=== PATIENT | male | born 1990 | race Caucasian/White ===

== ENCOUNTER 2025-03-24 11:35 | Emergency (ER) | payer OTHER, SELFPAY ==
[2025-03-24 11:36] VITALS: BP 125/70; PULSE 93; RESP 14; TEMP 36.8; O2SAT 98; BMI 21.9
--- NOTE | 2025-03-24 11:50 | EX.ED.GENINJ ---
HPI <GLYNN Dooley - Last Filed: 03/24/25 12:35> History of Present Illness Chief Complaint: Laceration Narrative Narrative: 34-year-old male states a metal pry bar kicked back and struck his right forehead causing a small laceration. No LOC. He has a mild headache. No visual changes, nausea, vomiting, altered mental status. He is not on blood thinners. Last tetanus unknown. PFSH <GLYNN Dooley - Last Filed: 03/24/25 12:35> [facility] Medical History (Updated 03/24/25 @ 11:56 by GLYNN Dooley) HPV in male Home Medications ?Medication ?Instructions ?Recorded ?Last Taken ?Type atomoxetine 60 mg capsule 60 mg PO DAILY 03/24/25 Unknown History venlafaxine 100 mg tablet 100 mg PO DAILY 03/24/25 Unknown History Allergy/AdvReac Type Severity Reaction Status Date / Time No Known Allergies Allergy Verified 03/24/25 11:38 Surgical History (Updated 03/24/25 @ 11:48 by Megan Mcclendon) History of hip surgery Social History Smoking Status: Never smoker ROS <GLYNN Dooley - Last Filed: 03/24/25 12:35> ROS ED ROS Narrative Eyes: Negative for visual change. GI: Negative for nausea, vomiting. Neuro: Positive for headache, negative motor/sensory dysfunction. Skin: Positive for laceration. EXAM <GLYNN Dooley - Last Filed: 03/24/25 12:35> Physical Exam Narrative Exam Narrative: CONST: Patient sitting in no acute distress. EYES: Normal inspection. PERRL, EOMI. HEAD: 2.5 cm linear laceration above right lateral eyebrow. No bleeding or gaping, no hematoma, no facial bone deformity or crepitus. No raccoon eyes or Gamble sign, no nasal septal hematoma, no hemotympanum, no CSF otorrhea or rhinorrhea. NECK: Normal inspection. RESP: No respiratory distress, CTAB. CVS: Regular rate and rhythm, no murmur, no gallop. SKIN: Color normal, no rash, warm, dry, intact. EXTREMITIES: Normal appearance, no pedal edema. NEURO: Alert and answering questions appropriately. PSYCH: Normal affect. Const Vital Signs: 03/24/25 11:36 Temperature 98.3 F Temperature Source Oral Pulse Rate 93 Respiratory Rate 14 Blood Pressure 125/70 H Blood Pressure Mean 88 Pulse Ox 98 Oxygen Delivery Method Room Air <Dr. Leandro Tran MD - Last Filed: 03/24/25 12:00> Physical Exam Const Vital Signs: 03/24/25 11:36 Temperature 98.3 F Temperature Source Oral Pulse Rate 93 Respiratory Rate 14 Blood Pressure 125/70 H Blood Pressure Mean 88 Pulse Ox 98 Oxygen Delivery Method Room Air [facility] <GLYNN Dooley - Last Filed: 03/24/25 12:35> [facility] Narrative Medical decision making narrative: Patient show male with a 2.5 cm laceration above his right eyebrow from a minor head injury. No LOC. No blood thinners. He is awake and alert, GCS 15, and has no signs of basilar skull fracture. Normal neurological exam. According to [place] CT head rule he does not require imaging. Wound was cleansed, closed with skin glue, and his tetanus was updated. He was given head injury return precautions and discharged in stable condition. I have personally performed a face to face assessment of the patient and have reviewed the HILARIA Note. I performed a substantive portion of the visit including all aspects of the following. My negrete findings include: History is 34-year-old male caught a pry bar just above his right eyebrow. Occurred within the last couple hours. No LOC. He is not on any blood thinners. Denies other complaints. Tetanus needs updated. Exam is [well-appearing 34-year-old male. Vital signs stable afebrile. H EENT exam pupils are reactive light. Scalp nontender. He has about a 1 inch horizontal laceration above his right eyebrow knee repaired. It has been glued. Good approximation. No hematoma. No foreign body or infection. Neck nontender. Normal range of motion. Back nontender. Lungs clear. Heart regular rhythm. No murmur. Rate 90. Chest wall ribs nontender. Abdomen soft nontender. Moving all 4 extremities. Normal strength. Neurologic exam normal. GCS 15.] Medical Decision Making [tetanus update and Dermabond right forehead laceration.] Other additions or changes: [None] <Dr. Leandro Tran MD - Last Filed: 03/24/25 12:00> [facility] Narrative Medical decision making narrative: I have personally performed a face to face assessment of the patient and have reviewed the HILARIA Note. I performed a substantive portion of the visit including all aspects of the following. My negrete findings include: History is 34-year-old male caught a pry bar just above his right eyebrow. Occurred within the last couple hours. No LOC. He is not on any blood thinners. Denies other complaints. Tetanus needs updated. Exam is [well-appearing 34-year-old male. Vital signs stable afebrile. H EENT exam pupils are reactive light. Scalp nontender. He has about a 1 inch horizontal laceration above his right eyebrow knee repaired. It has been glued. Good approximation. No hematoma. No foreign body or infection. Neck nontender. Normal range of motion. Back nontender. Lungs clear. Heart regular rhythm. No murmur. Rate 90. Chest wall ribs nontender. Abdomen soft nontender. Moving all 4 extremities. Normal strength. Neurologic exam normal. GCS 15.] Medical Decison Making [tetanus update and Dermabond right forehead laceration.] Other additions or changes: [None] Discharge Plan Triage Chief Complaint: Laceration ED Midlevel Provider: Taylor Henning ED Provider: Leandro Tran Dx/Rx/DC Orders Clinical Impression: Closed head injury, Open wound of right upper arm, Foreign body (FB) in soft tissue Instructions: ED Head Injury (Adult), ED Laceration, Face: Skin Glue Prescriptions: No Action venlafaxine 100 mg tablet 100 mg PO DAILY atomoxetine 60 mg capsule 60 mg PO DAILY Primary Care Provider: Care Physician,No Primary Activity Restrictions/Additional Instructions: The skin glue should fall off on its own over the next week. You can shower and then gently pat area dry. Do not put anything over the glue. Print Language: Wolof Disposition Disposition: Home, Self Care Discharge Date/Time: 03/24/25 12:19
[2025-03-24] MEDS: Diphth,Pertuss(Acell),Tet Vac 0.5 ML Vial IM (11:58)
== END 2025-03-24 12:19 | disposition home or self-care (01) ==
LOC: ED 12:00
PROVIDERS: Emergency Provider Emergency Medicine; Visit Provider Emergency Medicine
DX: S09.90XA Unspecified injury of head, initial encounter (principal); S41.101A Unspecified open wound of right upper arm, initial encounter; Z23 Encounter for immunization; Z79.899 Other long term (current) drug therapy; X58.XXXA Exposure to other specified factors, initial encounter
CPT/HCPCS: 90471; 90715; 99282

== ENCOUNTER → 2025-06-26 | Outpatient (CLI) | payer OTHER, SELFPAY ==
--- OUTSIDE RECORDS SUMMARY | 2025-06-26 07:13 | XMS RPT_ITS | CCD ---
Author Organization [employer] [facility] Care Team Providers Care Human Resources Intern Name Role Phone Leandro Tran Attending Unavailable Care Physician, No Primary Primary Care Unava ilable Ariel Wilks Referring Unavailable Ariel Wilks Attending Unavailable Ariel Wilks Primary Care Unavailable Problems Problem Classification Problem Date Documented Da te Episodic/Chronic Other injuries and conditions due to external causes (1 source) Unspecified injury of head, initial encounter; Translations: [Unspecified injury of head, initial encounter] Onset: 03-28-2025 Episodic Results Test Name Value Interpretation Reference Range Facil ity Emergency Department Summary on 03-24-2025 Emergency Department Summary [facility] Medical Records Department [address] [place] [address] Emergency Department Summary 03/24/25 MR#: [id number] Acct: [id number] Name: JEN GONZALEZ Rep #: [id number] : 1990 34 From: Taylor MAKI PCP: Care Physician,No Primary Status:DEP ER Location: ED HPI History of Present Illness Chief Complaint: Laceration Narrative Narrative: 34-year-old male states a metal pry bar kicked back and struck his right forehead causing a small laceration. No LOC. He has a mild headache. No visual changes, nausea, vomiting, altered mental status. He is not on blood thinners. Last tetanus unknown. [facility] Medical History (Updated 03/24/25 @ 11:56 by GLYNN Dooley) HPV in male Home Medications ???Medication ???Instructions ???Recorded ???Last Taken ???Type atomoxetine 60 mg capsule 60 mg PO DAILY 03/24/25 Unknown Hi story venlafaxine 100 mg tablet 100 mg PO DAILY 03/24/25 Unknown H istory Allergy/AdvReac Type Severity Reaction Status Date / Time No Known Allergies Allergy Verified 03/24/25 11:38 Surgical History (Updated 03/24/25 @ 11:48 by Megan Mcclendon) History of hip surgery Social History Smoking Status: Never smoker ROS ROS ED ROS Narrative Eyes: Negative for visual change. GI: Negative for nausea, vomiting. Neuro: Positive for headache, negative motor/sensory dysfunction. Skin: Positive for laceration. EXAM Physical Exam Narrative Exam Narrative: CONST: Patient sitting in no acute distress. EYES: Normal inspection. PERRL, EOMI. HEAD: 2.5 cm linear laceration above right lateral eyebrow. No bleeding or gaping, no hematoma, no facial bone deformity or crepitus. No raccoon eyes or Gamble sign, no nasal septal hematoma, no hemotympanum, no CSF otorrhea or rhinorrhea. NECK: Normal inspection. RESP: No respiratory distress, CTAB. CVS: Regular rate and rhythm, no murmur, no gallop. SKIN: Color normal, no rash, warm, dry, intact. EXTREMITIES: Normal appearance, no pedal edema. NEURO: Alert and answering questions appropriately. PSYCH: Normal affect. Const Vital Signs: 03/24/25 11:36 Temperature 98.3 F Temperature Source Oral Pulse Rate 93 Respiratory Rate 14 Blood Pressure 125/70 H Blood Pressure Mean 88 Pulse Ox 98 Oxygen Delivery Method Room Air Physical Exam Const Vital Signs: 03/24/25 11:36 Temperature 98.3 F Temperature Source Oral Pulse Rate 93 Respiratory Rate 14 Blood Pressure 125/70 H Blood Pressure Mean 88 Pulse Ox 98 Oxygen Delivery Method Room Air MDM MDM MDM Narrative Medical decision making narrative: Patient show male with a 2.5 cm laceration above his right eyebrow from a minor head injury. No LOC. No blood thinners. He is awake and alert, GCS 15, and has no signs of basilar skull fracture. Normal neurological exam. According to [place] CT head rule he does not require imaging. Wound was cleansed, closed with skin glue, and his tetanus was updated. He was given head injury return precautions and discharged in stable condition. I have personally performed a face to face assessment of the patient and have reviewed the HILARIA Note. I performed a substantive portion of the visit including all aspects of the following. My negrete findings include: History is 34-year-old male caught a pry bar just above his right eyebrow. Occurred within the last couple hours. No LOC. He is not on any blood thinners. Denies other complaints. Tetanus needs updated. Exam is [well-appearing 34-year-old male. Vital signs stable afebrile. H EENT exam pupils are reactive light. Scalp nontender. He has about a 1 inch horizontal laceration above his right eyebrow knee repaired. It has been glued. Good approximation. No hematoma. No foreign body or infection. Neck nontender. Normal range of motion. Back nontender. Lungs clear. Heart regular rhythm. No murmur. Rate 90. Chest wall ribs nontender. Abdomen soft nontender. Moving all 4 extremities. Normal strength. Neurologic exam normal. GCS 15.] Medical Decision Making [tetanus update and Dermabond right forehead laceration.] Other additions or changes: [None] MDM MDM Narrative Medical decision making narrative: I have personally performed a face to face assessment of the patient and have reviewed the HILARIA Note. I performed a substantive portion of the visit including all aspects of the following. My negrete findings include: History is 34-year-old male caught a pry bar just above his right eyebrow. Occurred within the last couple hours. No LOC. He is not on any blood thinners. Denies other complaints. Tetanus needs updated. Exam is [well-appearing 34-year-old male. Vital signs stable afebrile. H EENT exam pupils are reactive light. Scalp nontender. He has (more content not included)... Normal [facility] Encounters Encounter Date Encounter Type Care Provider Facility Start: 06-26-2025 ambulatory Ariel Wilks Facility:[facility] Start: 03-24-2025 End: 03-24-2025 Emergency department patient visit Leandro Tran Facility:[facility] Payers Date Payer Category Payer Self-pay 2025 Unknown [id number] Unknown [id number] Unknown [id number] Summary Purpose Family History No Family History Records Found Advance Directives No Advanced Directives Records Found Additional Source Comments (unrecognized sect ion and content) No Status Records Found INFORMATION SOURCE (unrecogn ized section and content) DATE CREATED AUTHOR 06/26/2025 [facility] FOR RECORDS PERTAINING TO PATIENTS WHO ARE OR HAVE BEEN ENROLLED IN A CHEMICAL DEPENDENCY/SUBSTANCEABUSE PROGRAM, SOME INFORMATION MAY BE OMITTED. This clinical summary was aggregated from multiple sources. Caution should be exercised in using it in the provision of clinical care. This summary normalizes information from multiple sources, and as a consequence, information in this document may materially change the coding, format and clinical context of patient data. In addition, data may be omitted in some cases. CLINICAL DECISIONS SHOULD BE BASED ON THE PRIMARY CLINICAL RECORDS. [facility] [employer] [facility]. provides no warranty or guarantee of the accuracy or completeness of information in this document.
[2025-06-26 11:36] LABS: Anion Gap 12 (5-15); BUN 9 mg/dL (4-19); BUN/Creat Ratio 9.2 RATIO (10-20); Calcium,Total 9.5 mg/dL (7.6-11.0); Carbon Dioxide 26.4 mmol/L (21.0-32.0); Chloride 101 mmol/L (98-108); Cholesterol 173 mg/dL (<=200); Glucose 89 mg/dL (70-99); Low Density Lipoprotein Calc. 98 mg/dL; Potassium 3.9 mmol/L (3.3-5.1); Triglycerides 78 mg/dL; Very Low Density Lipoprotein 16 mg/dL (5-40); cholesterol:hdl ratio screen 2.91
== END | disposition home or self-care (01) ==
LOC: MTLAB 06:58
PROVIDERS: PCP Family Medicine; Referring Provider Family Medicine; Visit Provider Family Medicine
DX: Z00.00 Encounter for general adult medical examination without abnormal findings (principal)
CPT/HCPCS: 36415; 80048; 80061; 84443

== ENCOUNTER 2025-08-13 11:22 | Emergency (ER) | payer OTHER, SELFPAY ==
[2025-08-13 11:23] VITALS: PULSE 84; RESP 16; TEMP 36.6; O2SAT 99; BMI 21.4
--- OUTSIDE RECORDS SUMMARY | 2025-08-13 11:59 | XMS RPT_ITS | CCD ---
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 Reeves Attending Provider [phone] Dr. Leandro Tran MD Emergency Provider [phone] Care Physician, No Primary Primary Care Provider Unavailable Efe AGUILAR, Dr. George Primary Care Provider [phone] Efe AGUILAR, Dr. George Attending Provider Dr. Ariel Wilks MD Referring Provider Ariel Wilks Primary Care Unavailable Ariel Wilks Attending Unavailable Ariel Wilks Referring Unavailable Leandro Tran Attending Unavailable Care Physician, No Primary Primary Care Unava ilable Medications Current Medications Medication Drug Class(es) Dates Sig (Normalized) Sig (Original) atomoxetine 60 mg oral capsule (1 source) Norepinephrine Reuptake Inhibitor Start: 03-24-2025 take 1 capsule by mouth once daily Atomoxetine 60 mg capsule Active 60 mg PO DAILY March 24, 2025 12:00am venlafaxine 100 mg oral tablet (1 source) Serotonin and Norepinephrine Reuptake Inhibitor Start: 03-24-2025 take 1 tablet by mouth once daily Venlafaxine 100 mg tablet Active 100 mg PO DAILY March 24, 2025 12:00am Problems Active Problems Problem Classification Problem Date Documented Da te Episodic/Chronic Open wounds of extremities (1 source) Open wound of right upper arm; Translations: [Unspecified open wound of right upper arm, initial encounter] 04-01-2025 Episodic Other connective tissue disease (1 source) Foreign body; Translations: [Residual foreign body in soft tissue] 04-01-2025 Episodic Other injuries and conditions due to external causes (1 source) Closed injury of head; Translations: [Unspecified injury of head, initial encounter] 04-01-2025 Episodic Past or Other Problems Problem Classification Problem Date Documented Da te Episodic/Chronic Other injuries and conditions due to external causes (1 source) Unspecified injury of head, initial encounter; Translations: [Unspecified injury of head, initial encounter] Onset: 03-28-2025 Episodic Results Test Name Value Interpretation Reference Range Facility Anion gap in Serum or Plasma Ordered By: Ariel Wilks on 06-26-2025 Anion gap [Moles/Vol] 12 mmol/L 5-15 [facility] BUN/creatinine ratioOrdered By: Ariel Wilks on 06-26-2025 Urea nitrogen/Creatinine [Mass ratio] 9.2 mg/mg Low 10-20 [facility] Basic Metabolic Profile (BMP )on 06-26-2025 BUN/CRE 9.2 RATIO Low 10-20 [facility] Comment on above: Performed By: #### L 501.9520, L500.4100, L500.2500 #### [facility] [address] [place], [address] Calcium [Mass/Vol] 9.5 mg/dL Normal 7.6-11.0 [facility] Comment on above: Performed By: #### L 501.9520, L500.4100, L500.2500 #### [facility] [address] [place], [address] Chloride [Moles/Vol] 101 mmol/L Normal 98-108 [facility] Comment on above: Performed By: #### L 501.9520, L500.4100, L500.2500 #### [facility] [address] [place], [address] CO2 [Moles/Vol] 26.4 mmol/L Normal 21.0-32.0 [facility] Comment on above: Performed By: #### L [id number], L500.4100, L500.2500 #### [facility] [address] [place], [address] Creatinine [Mass/Vol] 1.00 mg/dL Normal 0.70-1.20 [facility] Comment on above: Performed By: #### L [id number], L500.4100, L500.2500 #### [facility] [address] [place], [address] GAP 12 Normal 5-15 [facility] Comment on above: Performed By: #### L [id number], L500.4100, L500.2500 #### [facility] [address] [place], [address] GFR/1.73 sq M.predicted among non-blacks MDRD (S/P/Bld) [Vol rate/Area] 101 mL/min/{1.73_m2} Normal >60 [facility] Comment on above: Result Comment: mL/m in/1.73m2 CKD-EPI Creatinine Equation (2020) Performed By: #### L 501.9520, L500.4100, L500.2500 #### [facility] [address] [place], [address] Glucose [Mass/Vol] 89 mg/dL Normal 70-99 [facility] Comment on above: Performed By: #### L [id number], L500.4100, L500.2500 #### [facility] [address] [place], [address] Potassium [Moles/Vol] 3.9 mmol/L Normal 3.3-5.1 [facility] Comment on above: Performed By: #### L 501.9520, L500.4100, L500.2500 #### [facility] [address] [place], [address] Sodium [Moles/Vol] 139 mmol/L Normal 133-145 [facility] Comment on above: Performed By: #### L 501.9520, L500.4100, L500.2500 #### [facility] [address] [place], [address] Urea nitrogen [Mass/Vol] 9 mg/dL Normal 4-19 [facility] Comment on above: Performed By: #### L 501.9520, L500.4100, L500.2500 #### [facility] [address] [place], [place], [id number] Calculated very low density lipoprotein (VLDL) cholesterol measurementOrdered By: Ariel Wilks on 06-26-2025 Calculated very low density lipoprotein (VLDL) cholesterol measurement 16 mg/dL 5-40 [facility] Carbon dioxide, total [Moles /volume] in Central venous bloodOrdered By: Ariel Wilks on 06-26-2025 CO2 [Moles/Vol] 26.4 mmol/L 21.0-32.0 [facility] Chloride assayOrdered By: Adelso Wilks on 06-26-2025 Chloride [Moles/Vol] 101 mmol/L 98-108 [facility] Glomerular filtration rate ( GFR) estimation/1.73 sq m using serum, plasma, or whole bOrdered By: Ariel Wilks on 06-26-2025 GFR/1.73 sq M.predicted among non-blacks MDRD (S/P/Bld) [Vol rate/Area] 101 mL/min/{1.73_m2} >60 [facility] Comment on above: mL/min/1.73m2 CKD-EP I Creatinine Equation (2020) LDL calc ser/plasOrdered By: Ariel Wilks on 06-26-2025 Cholesterol in LDL [Mass/Vol] 98 mg/dL [facility] Comment on above: Woishblexr=427-169 m g/dL & Higher Nptg=259 mg/dL or greaterFriedwald Equation for LDL-C Lipid Profileon 06-26-2025 CHOL:HDL 2.91 Normal [facility] Comment on above: Performed By: #### L 501.9520, L500.4100, L500.2500 #### [facility] [address] [place], [address] Cholesterol [Mass/Vol] 173 mg/dL Normal <=200 [facility] Comment on above: Result Comment: Chol esterol level, Desirable <200 mg/dL Borderline high cholesterol 200-239 mg/dL High cholesterol >=240 mg/dL Recommendations of the NCEP Adult Treatment Panel for the following risk-cutoff thresholds for the [place] population. Performed By: #### L 501.9520, L500.4100, L500.2500 #### [facility] [address] [place], [address] Cholesterol in HDL [Mass/Vol] 59 mg/dL Normal [facility] Comment on above: Result Comment: Amber onal Cholesterol Education Program (NCEP) guidelines: <40 mg/dL: Low HDL-cholesterol (major risk factor for CHD) >= 60 mg/dL: High HDL-cholesterol (negative risk factor for CHD) HDL-cholesterol is affected by a number of factors, e.g. smoking, exercise, hormones, sex and age. Performed By: #### L [id number], L500.4100, L500.2500 #### [facility] [address] [place], [address] Cholesterol in LDL [Mass/Vol] 98 mg/dL Normal [facility] Comment on above: Result Comment: Bord nkvnmv=217-865 mg/dL Higher Ctqy=945 mg/dL or greater Friedwald Equation for LDL-C Performed By: #### L [id number], L500.4100, L500.2500 #### [facility] [address] [place], [address] Cholesterol in VLDL [Mass/Vol] 16 mg/dL Normal 5-40 [facility] Comment on above: Performed By: #### L [id number], L500.4100, L500.2500 #### [facility] [address] [place], [address] Triglyceride [Mass/Vol] 78 mg/dL Normal [facility] Comment on above: Result Comment: The drugs N-Acetylcysteine and Metamizole may falsely depress this assay. Normal range: <150 mg/dL Borderline High: 150-199 mg/dL High: 200-499 mg/dL Very High: >500 mg/dL Performed By: #### L [id number], L500.4100, L500.2500 #### [facility] [address] [place], [address] Potassium measurement (mass/ volume)Ordered By: Ariel Wilks on 06-26-2025 Potassium (Unsp spec) [Mass/Vol] 3.9 mmol/L 3.3-5.1 [facility] Screening total cholesterol/ high density lipoprotein (HDL) cholesterol ratioOrdered By: Ariel Wilks on 06-26-2025 Cholesterol.total/Fay sterol in HDL [Mass ratio] 2.91 {ratio} [facility] Serum creatinine measurement (mass/volume)Ordered By: Ariel Wilks on 06-26-2025 Creatinine [Mass/Vol] 1.00 mg/dL 0.70-1.20 [facility] Serum glucose measurement (m ass/volume)Ordered By: Ariel iWlks on 06-26-2025 Glucose [Mass/Vol] 89 mg/dL 70-99 [facility] Serum or plasma calcium marla urement (mass/volume)Ordered By: Ariel Wilks on 06-26-2025 Calcium [Mass/Vol] 9.5 mg/dL 7.6-11.0 [facility] Serum or plasma cholesterol in HDL measurement (mass/volume)Ordered By: Ariel Wilks on 06-26-2025 Cholesterol in HDL [Mass/Vol] 59 mg/dL >40 [facility] Comment on above: National Cholesterol Education Program (NCEP) guidelines:<40 mg/dL: Low HDL-cholesterol (major risk factor for CHD)>= 60 mg/dL: High HDL-cholesterol (negative risk factor for CHD)HDL-cholesterol is affected by a number of factors, e.g. smoking, exercise, hormones, sex and age. Serum or plasma cholesterol measurement (mass/volume)Ordered By: Ariel Wilks on 06-26-2025 Cholesterol [Mass/Vol] 173 mg/dL <201 [facility] Comment on above: Cholesterol level, D esirable <200 mg/dLBorderline high cholesterol 200-239 mg/dLHigh cholesterol >=240 mg/dLRecommendations of the NCEP Adult Treatment Panel for the following risk-cutoff thresholds for the [place] population. Serum or plasma urea nitroge n measurement (mass/volume)Ordered By: Ariel Wilks on 06-26-2025 Urea nitrogen [Mass/Vol] 9 mg/dL 4-19 [facility] Sodium levelOrdered By: Ariel Wilks on 06-26-2025 Sodium [Moles/Vol] 139 mmol/L 133-145 [facility] TSH DL <= 0.005 mIU/L QnOrde red By: Ariel Wilks on 06-26-2025 TSH Qn 1.450 uIU/mL 0.300-4.200 [facility] Thyroid Stim Hormone (TSH)on 06-26-2025 TSH 1.450 uIU/mL Normal 0.300-4.200 [facility] Comment on above: Performed By: #### L [id number], L500.4100, L500.2500 #### [facility] [address] [place], [address] Triglycerides measurementOrd ered By: Ariel Wilks on 06-26-2025 Triglyceride [Mass/Vol] 78 mg/dL <199 [facility] Comment on above: The drugs N-Acetylcy steine and Metamizole may falsely depress this assay. Normal range: <150 mg/dLBorderline High: 150-199 mg/dLHigh: 200-499 mg/dLVery High: >500 mg/dL Emergency Department Summary on 03-24-2025 Emergency Department Summary [facility] Medical Records Department [address] [place] [address] Emergency Department Summary 03/24/25 MR#: [id number] Acct: [id number] Name: JEN GONZALEZ Rep #: [id number] : 1990 34 From: [facility] MAKI PCP: [...] not on blood thinners. Last tetanus unknown. [facility] Medical History (Updated 03/24/25 @ 11:56 by ADELSO Dooley) HPV in male Home Medications ???Medication [...] skull fracture. Normal neurological exam. According to [place] CT head rule he does not require [...] forehead laceration.] Other additions or changes: [None] [employer] Narrative Medical decision making narrative: I have [...] He has (more content not included)... Normal [facility] Vital Signs Date Time Vital Sign Value Performing Clinician Faci lity 03-24-2025 11:36-0400 Body height 167.[address] Leandro Tran MD Work Phone: [facility] 03-24-2025 11:36-0400 Body mass index (BMI) [Ratio] 21.9 kg/m2 Dr. Leandro Tran MD Work Phone: [facility] 03-24-2025 11:36-0400 Body temperature 98.3 [degF] Dr. Leandro Tran MD Work Phone: [facility] 03-24-2025 11:36-0400 Body weight 61.[address] Leandro Tran MD Work Phone: [facility] 03-24-2025 11:36-0400 Diastolic blood pressure 70 mm[Hg] Dr. Leandro Tran MD Work Phone: [facility] 03-24-2025 11:36-0400 Heart rate 93 /min Dr. Leandro Tran MD Work Phone: [facility] 03-24-2025 11:36-0400 Respiratory rate 14 /min Dr. Leandro Tran MD Work Phone: [phone] [place] [address] 03-24-2025 11:36-0400 SaO2% (BldA) [Mass fraction] 98 % Dr. Leandro Tran MD Work Phone: [facility] 03-24-2025 11:36-0400 Systolic blood pressure 125 mm[Hg] Dr. Leandro Tran MD Work Phone: [facility] Encounters Encounter Date Encounter Type Care Provider Facility Start: 07-03-2025 Encounter for genera l adult medical examination without abnormal findings [facility] Start: 06-26-2025 End: 06-26-[address] Leandro Tran MD Work Phone: [facility] Start: 06-26-2025 End: 06-26-[address] Ariel Wilks MD [facility] Work Phone: Start: 06-26-2025 End: 06-26-2025 ambulatory Ariel Wilks Facility:[facility] Start: 03-24-2025 End: 03-24-2025 Emergency department patient visit Dr. Leandro Tran MD -Emergency Department Work Phone: Plan of Treatment Date Care Activity Detail Author Start: 03-24-2025 [facility] Patient Education ED Head Injury (Adult) ED Laceration, Face: Skin Glue [facility] Work Phone: Immunizations Immunization Date Immunization Notes Care Provider Fa cility 03-24-2025 tetanus toxoid, redu tera diphtheria toxoid, and acellular pertussis vaccine, adsorbed Dr. Leandro Tran MD Work Phone: [facility] Payers Date Payer Category Payer Self-pay 2025 Unknown [id number] Unknown [id number] Unknown [id number] Social History Date Type Detail Facility Start: 03-24-2025 Tobacco smoking stat [facility] Never smoked tobacco (finding) [facility] Start: 1990 Sex Assigned At Male [facility] Evaluation note Note Date & Type Note Facility Evaluation note No assessment information availa ble [facility] Work Phone: Reason for referral (narrative) Note Date & Type Note Facility Reason for referral (narrative) No reason for referral information available [facility] Work Phone: Chief Complaint and Reason for Visit Chief Complaint Admit Date laceration March 24, 2025 11:35a m Advance Directives No Advanced Directives Records Found Advance Directive Response Recorded Date/ Time Do you have a Healthcare Power of Mortgage Closer? No March 24, 2025 11:48am Summary Purpose Family History No Family History Records Found Additional Source Comments Care Teams (unrecognized sec tion and content) Team Status: Active Member Role/Relationship Status Dates Dr. Ariel Wilks MD Primary Care Provider Active Team Status: Inactive Member Role/Relationship Status Dates Dr. Leandro Tran MD Attending Provider Active S tart: March 24, 2025 End: March 24, 2025 Dr. Leandro Tran MD Emergency Provider Active S tart: March 24, 2025 End: March 24, 2025 No Primary Care Physician Primary Care Provider Active Start: March 24, 2025 End: March 24, 2025 Team Status: Inactive Member Role/Relationship Status Dates Dr. Ariel Wilks MD Primary Care Provider Active Start: June 26, 2025 End: June 26, 2025 Dr. Ariel Wilks MD Attending Provider Active Start: June 26, 2025 End: June 26, 2025 Dr. Ariel Wilks MD Referring Provider Active Start: June 26, 2025 End: June 26, 2025 Goals (unrecognized section and content) Goals may be documented in a n alternate section (unrecognized sect ion and content) No Status Records Found INFORMATION SOURCE (unrecogn ized section and content) DATE CREATED AUTHOR 07/04/2025 [facility] FOR RECORDS PERTAINING TO PATIENTS WHO ARE [...] BE BASED ON THE PRIMARY CLINICAL RECORDS. [employer] provides no warranty or guarantee of the accuracy or completeness of information in this document.
[2025-08-13] MEDS: 0.9% Normal Saline (1000mL) 1,000 ML 1000 ML IV (12:03)
--- NOTE | 2025-08-13 12:06 | ED.RN ---
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 Cap came off and blood got on gown and bed. This nurse offered to change sheets and gown. Pt refused and stated its fine. I told pt if he changes his mind to let us know and we would change it.
[2025-08-13 12:16] LABS: Hematocrit 38.5 % (40-54); Hemoglobin 13.8 g/dL (13.0-16.5); Immature Granulocytes Count 0.040 X10^3/uL (0.0-0.0); Mean Corp Hgb Conc 35.8 g/dL (32-36); Mean Corpuscular Volume 90.0 fL (80-94); Mean Platelet Vol. 10.6 fl (6.2-12.0); NRBC Flagged by Analyzer 0 % (0-5); Platelet Count 181 K/mm3 (150-450); RBC Distribution Width CV 11.7 % (11.6-14.6); RBC Distribution Width SD 37.7 fl (35.1-43.9); Red Blood Count 4.28 M/mm3 (4.6-6.2); White Blood Count 10.7 K/mm3 (4.4-11.0)
[2025-08-13 12:37] VITALS: BP 107/60; PULSE 68; O2SAT 98
[2025-08-13 12:38] LABS: Anion Gap 14 (5-15); BUN 15 mg/dL (4-19); BUN/Creat Ratio 15.5 RATIO (10-20); CPK Total, Creatine Kinase 222 U/L (24-195); Calcium,Total 8.5 mg/dL (7.6-11.0); Carbon Dioxide 21.3 mmol/L (21.0-32.0); Chloride 102 mmol/L (98-108); Estimated Creatinine Clearance 91.77 ml/min (50-250); Glucose 80 mg/dL (70-99); Potassium 4.2 mmol/L (3.3-5.1)
[2025-08-13 13:21] LABS: Barbiturate Urine NEGATIVE (< 200 ng/mL); Benzodiazepine Urine PRESUMPTIVE POSITIVE (< 200 ng/mL); PCP Urine NEGATIVE (< 25 ng/mL); THC Urine PRESUMPTIVE POSITIVE (< 50 ng/mL)
[2025-08-13 13:37] VITALS: BP 105/64; PULSE 71; RESP 16; TEMP 36.6; O2SAT 97
--- NOTE | 2025-08-13 14:52 | EDS_ITS ---
HPI History of Present Illness Chief Complaint: Seizure Narrative Narrative: Patient is a 35-year-old male presenting to the emergency department for muscle cramping. Patient states this has happened before but he has not been seen by a doctor for it. He takes venlafaxine and guanfacine. There is been no recent medication changes. Uses marijuana but denies any other drug or alcohol use. States that when he got home today he felt like all of his muscles were tightening. States it felt like he was holding something that was vibrating. He tried to get into the bath to loosen his muscles. This did not help. States he became emotional which is not typical for him. States that his then called EMS. He reports that he was working outside yesterday and has a fairly physical job. He denies fever, chills, chest pain, shortness of breath, abdominal pain, nausea, vomiting, diarrhea. Denies any dysuria or hematuria. Denies any numbness or weakness in his extremities. Denies any headache, vision changes, neck pain or back pain. [facility] Medical History HPV in male Home Medications ?Medication ?Instructions ?Recorded ?Last Taken ?Type guanfacine 3 mg tablet,extended 3 mg PO DAILY 08/13/25 08/12/25 History release 24 hr venlafaxine 75 mg tablet 75 mg PO DAILY 08/13/2507/25 History Allergy/AdvReac Type Severity Reaction Status Date / Time No Known Allergies Allergy Verified 08/13/25 11:27 Surgical History History of hip surgery Social History Smoking Status: Current every day smoker tobacco type: e-cigarettes ROS ROS ED ROS Narrative See HPI EXAM Physical Exam Narrative Exam Narrative: Vital signs: Reviewed General: Alert and orientedx3. No acute distress HEENT: Head is normocephalic and atraumatic, sinuses nontender, pupils equal round and reactive. Nares are patent. Oropharynx and throat exams normal. Neck: Supple without lymphadenopathy nontender. No nuchal rigidity. Cardiovascular: Regular rate and rhythm, no murmurs. No rubs or gallops. Normal S1 and S2 Respiratory: Clear to auscultation bilaterally. No wheezes, rales, rhonchi Abdominal: Soft and nontender. Normal bowel sounds. No guarding or rebound. Nonsurgical abdomen Extremities: Left hand with some rigidity on initial evaluation, able to wiggle fingers and extend fingers with effort. No tenderness. No bruising. Normal range of motion. Normal sensation. Skin: No rash or redness. Neuro: No clonus on exam. The rest of the physical exam is unremarkable Const Vital Signs: 08/13/25 11:23 08/13/25 12:37 08/13/25 13:37 Temperature 97.9 F 97.9 F Temperature Source Oral Pulse Rate 84 68 71 Respiratory Rate 16 16 Blood Pressure 107/60 105/64 Blood Pressure Mean 75 77 Pulse Ox 99 98 97 Oxygen Delivery Method Room Air NIHSS NIHSS Initial: 1a Level of Consciousness: 0 1b LOC Questions (Score 2 if aphasic/stupor): 0 1c LOC Commands (Only score 1st attempt): 0 2 Best Gaze (If aphasic, use reflexive mvmts.): 0 3 Visual: 0 4 Facial Palsy: 0 5 Motor Arm Right (UN = amputation/fusion): 0 5 Motor Arm Left: 0 6 Motor Leg Right: 0 6 Motor Leg Left: 0 7 Limb ataxia (Only + if out of proportion): 0 8 Sensory (Aphasia/stupor=0 or 1, coma=2): 0 9 Best Language: 0 10 Dysarthria (mute, coma=2, intubated=UN): 0 11 Extinction and Inattention (only scored if +): 0 Total Score: 0 MDM MDM MDM Narrative Medical decision making narrative: Patient is a 35-year-old male presenting to the emergency department for muscle rigidity. Patient was seen and examined. Vitals are stable. Patient resting bed comfortably no acute distress. He is afebrile. Differential includes but is not limited to: Rhabdo, electrolyte imbalance, drug use, seizure, NMS, serotonin syndrome Patient started on fluid bolus. Patient's neurologic exam is unremarkable, no clonus on exam. Normal mental status. No indication for CT brain. No fevers, AMS or headache to suggest meningitis or encephalitis. Patient remembers the whole event, doubt this is seizure-like however will obtain lactate. Lactate within normal limits. CBC with no leukocytosis and a normal hemoglobin. BMP with no significant abnormalities. CK very mildly elevated at 222. Urine drug screen positive for benzos which was given by EMS and cannabinoids. Patient reevaluated after being here and has marked improvement in his symptoms. Discussed workup with patient and at bedside. Recommended follow-up with primary care doctor soon as possible. Patient discharged from the Emergency Department. I do not feel that the patient's evaluation reveals any acute reason for admission at this time. I instructed them to either follow-up with their primary care physician or promptly return to the Emergency Department for reevaluation should symptoms worsen or new symptoms develop. I explained what symptoms would indicate the need to return to the emergency department. Shared decision making was used. The patient voiced understanding of the treatment plan and is agreeable with it. Clinical impression: Elevated CK muscle rigidity History & Record Review Discussion w/independent historian: Patient and Significant other Lab Data Attestation: I reviewed the patient's lab results. Labs: Laboratory Results - last 24 hr 08/13/25 08/13/25 12:00 13:00 WBC 10.7 RBC 4.28 L Hgb 13.8 Hct 38.5 L MCV 90.0 MCH 32.2 H MCHC 35.8 RDW Std Deviation 37.7 RDW Coeff of Sade 11.7 Plt Count 181 MPV 10.6 Immature Gran % (Auto) 0.400 Neut % (Auto) 84.2 H Lymph % (Auto) 7.7 L [place] % (Auto) 7.1 Eos % (Auto) 0.2 Baso % (Auto) 0.4 Absolute Neuts (auto) 9.0 H Absolute Lymphs (auto) 0.83 Nucleated RBC % 0 Sodium 137 Potassium 4.2 Chloride 102 Carbon Dioxide 21.3 Anion Gap 14 BUN 15 Creatinine 0.94 Estim Creat Clear Calc 91.77 Est GFR (MDRD) Non-Af 107 BUN/Creatinine Ratio 15.5 Glucose 80 Lactic Acid 1.2 Calcium 8.5 Total Creatine Kinase 222 H Urine Opiates Screen NEGATIVE U Buprenorphine Qual NEGATIVE Ur Oxycodone Screen NEGATIVE Urine Methadone Screen NEGATIVE Urine Fentanyl Screen NEGATIVE Ur Barbiturates Screen NEGATIVE Ur Phencyclidine Scrn NEGATIVE Ur Amphetamines Screen NEGATIVE U Benzodiazepines Scrn PRESUMPTIVE POSITIVE Urine Cocaine Screen NEGATIVE U Cannabinoids Screen PRESUMPTIVE POSITIVE Discharge Plan Triage Chief Complaint: Seizure ED Provider: Tracey Lucero Dx/Rx/DC Orders Clinical Impression: Muscle rigidity Prescriptions: No Action venlafaxine 75 mg tablet 75 mg PO DAILY guanfacine 3 mg tablet extended release 24 hr 3 mg PO DAILY Primary Care Provider: Ariel Wilks Referrals: Ariel Wilks MD [Primary Care Provider, [facility]] - As soon as possible Activity Restrictions/Additional Instructions: Your evaluation in the Emergency Department did not reveal any acute reason for admission. However, I want to emphasize that you may be early in the course of a disease process or illness even if it is not present. For this reason you should follow-up within 24 hours for reevaluation with either your primary care physician or if necessary back here in the Emergency Department. You should return to the Emergency Department immediately if your symptoms worsen or new symptoms develop. Print Language: Chinese Disposition Disposition: Home, Self Care Discharge Date/Time: 08/13/25 13:43
== END 2025-08-13 13:43 | disposition home or self-care (01) ==
PROVIDERS: Emergency Provider Student in an Organized Health Care Education/Training Program; PCP Family Medicine; Visit Provider Student in an Organized Health Care Education/Training Program
DX: M62.89 Other specified disorders of muscle (principal); R74.8 Abnormal levels of other serum enzymes; F17.290 Nicotine dependence, other tobacco product, uncomplicated; Z79.899 Other long term (current) drug therapy
CPT/HCPCS: 80048; 80307; 82550; 83605; 85025; 99284; A4216